=== PATIENT | female | born 1945 | race Caucasian/White ===

== ENCOUNTER → 2017-12-01 | Outpatient (CLI) | payer MEDICARE ==
[~2017-12-01] MED LIST: ASMANEX TW0.22 MG/A1 IH; PERCOCET 325 MG1 TA2 PO; PRO-AIR IH; RT ADVAIR 228 DISKUS IH; RT SPIRIVA18 MCG IH; VENTOLIN0.09 MG
== END ==
LOC: COL.VAS 11:48
DX: I34.0 Nonrheumatic mitral (valve) insufficiency (principal); I51.7 Cardiomegaly; J90 Pleural effusion, not elsewhere classified; I31.3 Pericardial effusion (noninflammatory)

== ENCOUNTER 2018-02-17 09:30 | Outpatient (RCR) | payer MEDICARE | END 2018-03-05 | disposition home or self-care (01) | LOC: MKS.ESL.PT | DX: I89.0 Lymphedema, not elsewhere classified (principal) | CPT/HCPCS: G8990-GP; G8991-GP ==

== ENCOUNTER → 2018-06-23 | Outpatient (CLI) | payer MEDICARE | LOC: COL.RAD 10:30 | DX: K80.20 Calculus of gallbladder without cholecystitis without obstruction (principal); J18.9 Pneumonia, unspecified organism; R91.8 Other nonspecific abnormal finding of lung field ==

== ENCOUNTER → 2018-07-14 | Outpatient (CLI) | payer MEDICARE | LOC: COL.RAD 12:38 | DX: K80.20 Calculus of gallbladder without cholecystitis without obstruction (principal) ==

== ENCOUNTER 2018-09-14 10:34 | Day surgery (SDC) | payer MEDICARE ==
[~2018-09-14] VITALS: Ht 167.6 cm; Wt 106.4 kg
[2018-09-14] MEDS ORDERED: SYNTHROID0.088 MG/T PO (11:02)
[2018-09-14] MEDS ORDERED: REFRESH TEARS 330 ML OP (11:04)
[2018-09-14] MEDS ORDERED: ZYRTEC 10MG10 MG PO (11:06)
[2018-09-14 11:23] VITALS: BP 140/75; PULSE 55; TEMP 97.9
[2018-09-14] MEDS ORDERED: PERCOCET 325 MG1 TA2 PO (15:25)
[2018-09-14] MEDS ORDERED: MOTRIN 600600 MG/TAB PO (15:26)
[2018-09-14] MEDS ORDERED: COLACE 100100 MG/CAP PO (15:26)
[2018-09-14 15:55] VITALS: BP 132/66; PULSE 78; TEMP 98.2
--- NOTE | 2018-09-14 15:55 | NUR ---
PATIENT RETURNS FROM OR VIA CART TO BAY 6. VS STARTED. DENIES PAIN OR NAUSEA AT THIS TIME. REQUESTS WATER AND VANILLA PUDDING. ALERT AND ORIENTED X 4. FAMILY IS AT BEDSIDE. CALL LIGHT IS WITHIN REACH. WILL CONTINUE TO MONITOR.
[2018-09-14 16:10] VITALS: BP 136/68; PULSE 72
[2018-09-14 16:25] VITALS: BP 114/65; PULSE 68
--- NOTE | 2018-09-14 16:38 | NUR ---
TOLERATED WATER AND PUDDING, DENIES NAUSEA. DENIES PAIN. DENIES OTHER NEEDS AT THIS TIME. CALL LIGHT IS WITHIN REACH. FAMILY IS AT BEDSIDE. WILL CONTINUE TO MONITOR.
[2018-09-14 16:40] VITALS: BP 136/78; PULSE 72; TEMP 97.6
--- NOTE | 2018-09-14 16:40 | NUR ---
PATIENT REQUESTS MORE WATER. DENIES PAIN OR NAUSEA. IV DC'D. CALL LIGHT IN REACH.
[2018-09-14 16:43] VITALS: BP 132/66; PULSE 73; TEMP 97.9
--- NOTE | 2018-09-14 17:00 | NUR ---
PATIENT AMBULATED TO THE RESTROOM WITH STEADY GAIT, UNASSISTED. REPORTED URINATING WITHOUT DIFFICULTY. DISCHARGE INSTRUCTIONS GIVEN TO PATIENT AND FAMILY.
--- NOTE | 2018-09-14 17:19 | NUR ---
PATIENT DECLINED WHEELCHAIR ASSISTANCE TO PERSONAL VEHICHLE, AMBULATED WITH STEADY GAIT ESCORTED BY THIS NURSE AND FAMILY.
== END 2018-09-14 17:10 | disposition home or self-care (01) ==
LOC: SDCO 10:34
DX: K80.10 Calculus of gallbladder with chronic cholecystitis without obstruction (principal); J44.9 Chronic obstructive pulmonary disease, unspecified; E03.9 Hypothyroidism, unspecified; D64.9 Anemia, unspecified; Z85.828 Personal history of other malignant neoplasm of skin; Z80.1 Family history of malignant neoplasm of trachea, bronchus and lung; Z88.0 Allergy status to penicillin; Z90.710 Acquired absence of both cervix and uterus
CPT/HCPCS: J0690; J1100; J2405; J2704; J3010; J7120; Q9967

== ENCOUNTER → 2021-01-16 | Outpatient (CLI) | payer MEDICARE ==
[~2021-01-16] MED LIST changes: +ALEVE 220MG220 MG PO; +COLACE 100100 MG/CAP PO; +MASON NATURAL1200 MG PO; +MOTRIN 600600 MG/TAB PO; +MULTIPLE VITAMI1 TA5 PO; +NORCO 325 MG-51 TAB PO; +PHARMASSURE ZIN50 MG PO; +REFRESH TEARS 330 ML OP; +RT ALBUTER2.5 MG/0.5 IH; +SINGULAIR 110 MG/TAB PO; +SYNTHROID0.088 MG/T PO; +THEO-24 30300 MG/CAP PO; +VITAMIN C500 MG PO; +VITAMIN D 400400 IU PO; +ZYRTEC 10MG10 MG PO
== END ==
LOC: MC.RAD 11:03
DX: N63.20 Unspecified lump in the left breast, unspecified quadrant (principal)
CPT/HCPCS: 30634

== ENCOUNTER → 2021-02-25 | Outpatient (CLI) | payer MEDICARE | LOC: MC.RAD 12:23 | DX: C50.912 Malignant neoplasm of unspecified site of left female breast (principal); Z17.0 Estrogen receptor positive status [ER+] | CPT/HCPCS: A9541; C1769 ==

== ENCOUNTER 2021-02-26 09:09 | Day surgery (SDC) | payer MEDICARE ==
[~2021-02-26] VITALS: Ht 167.6 cm; Wt 103.8 kg
[~2021-02-26 09:09] MED LIST changes: -ALEVE 220MG220 MG PO; -MASON NATURAL1200 MG PO; -MULTIPLE VITAMI1 TA5 PO; -NORCO 325 MG-51 TAB PO; -PHARMASSURE ZIN50 MG PO; -RT ALBUTER2.5 MG/0.5 IH; -SINGULAIR 110 MG/TAB PO; -THEO-24 30300 MG/CAP PO; -VITAMIN C500 MG PO; -VITAMIN D 400400 IU PO
[2021-02-26 10:11] VITALS: BP 182/87; PULSE 74; TEMP 97.9
[2021-02-26] MEDS ORDERED: SINGULAIR 110 MG/TAB PO (12:07)
[2021-02-26] MEDS ORDERED: RT ALBUTER2.5 MG/0.5 IH (12:09)
[2021-02-26] MEDS ORDERED: ALEVE 220MG220 MG PO (12:10)
[2021-02-26] MEDS ORDERED: THEO-24 30300 MG/CAP PO (12:11)
[2021-02-26] MEDS ORDERED: MULTIPLE VITAMI1 TA5 PO (12:13)
[2021-02-26] MEDS ORDERED: MASON NATURAL1200 MG PO (12:14)
[2021-02-26] MEDS ORDERED: VITAMIN D 400400 IU PO (12:14)
[2021-02-26] MEDS ORDERED: VITAMIN C500 MG PO (12:15)
[2021-02-26] MEDS ORDERED: PHARMASSURE ZIN50 MG PO (12:15)
[2021-02-26 15:13] VITALS: TEMP 98.8
[2021-02-26] MEDS ORDERED: NORCO 325 MG-51 TAB PO (15:24)
[2021-02-26] MEDS ORDERED: MOTRIN 600600 MG/TAB PO (15:24)
[2021-02-26 15:25] VITALS: BP 140/68; PULSE 76
--- NOTE | 2021-02-26 15:25 | NUR ---
Patient returns to room 1 per cart from PACU accompanied by Isela SMITH and is awake and alert. Temp 98.2 and room air sats 94%. Exofin skin glue covering the incisions x2 on the left breast dry and intact. Taking ice chips. Denies pain or nausea. IV to INT and assisted up to the bathroom with one person assist. Able to void and returns to room. Tolerated activity well.
[2021-02-26 15:40] VITALS: BP 156/81; PULSE 80
--- NOTE | 2021-02-26 15:40 | NUR ---
Taking ice chips and denies pain or nausea.
[2021-02-26 15:55] VITALS: BP 140/68; PULSE 66
--- NOTE | 2021-02-26 15:55 | NUR ---
Eating applesauce, toast, and drinking water and coffee.
[2021-02-26 16:10] VITALS: BP 122/53; PULSE 88
--- NOTE | 2021-02-26 16:10 | NUR ---
Tolerated snack. Continues to dey pain or nausea. States she is feeling well enough to go home.
--- NOTE | 2021-02-26 16:15 | NUR ---
IV discontinued and site is free of redness or swelling. Assisted with dressing. Dismissal instructions given and voices understanding of these. Provided follow up appointment date and time.
--- NOTE | 2021-02-26 16:25 | NUR ---
Patient dismissed to home driven by daughter and assisted with into vehicle with dismissal instructions in hand. Taken to vehicle per wheelchair.
== END 2021-02-26 16:25 | disposition home or self-care (01) ==
LOC: SDCO 09:09
DX: C50.412 Malignant neoplasm of upper-outer quadrant of left female breast (principal); I10 Essential (primary) hypertension; I25.2 Old myocardial infarction; J44.9 Chronic obstructive pulmonary disease, unspecified; E03.9 Hypothyroidism, unspecified; Z79.890 Hormone replacement therapy; Z79.899 Other long term (current) drug therapy; Z90.710 Acquired absence of both cervix and uterus; Z90.49 Acquired absence of other specified parts of digestive tract; Z80.1 Family history of malignant neoplasm of trachea, bronchus and lung
CPT/HCPCS: A4648; J0690; J1100; J1885; J2250; J2405; J2704; J2795; J7120; Q9968

== ENCOUNTER 2023-01-10 06:48 | Day surgery (SDC) | payer MEDICARE ==
[~2023-01-10] VITALS: Ht 167.6 cm; Wt 110.2 kg
[2023-01-10] VITALS (15 sets, daily range): BP systolic 92–146; BP diastolic 46–96; PULSE 51–92; TEMP 97.5–99.3
[~2023-01-10 06:48] MED LIST changes: +ALEVE 220MG220 MG PO; +MASON NATURAL1200 MG PO; +MULTIPLE VITAMI1 TA5 PO; +NORCO 325 MG-51 TAB PO; +PHARMASSURE ZIN50 MG PO; +RT ALBUTER2.5 MG/0.5 IH; +SINGULAIR 110 MG/TAB PO; +THEO-24 30300 MG/CAP PO; +VITAMIN C500 MG PO; +VITAMIN D 400400 IU PO
[2023-01-10] MEDS ORDERED: ANORO IH (07:20)
[2023-01-10] MEDS ORDERED: SYNTHROID0.1 MG/TAB PO (07:22)
[2023-01-10] MEDS ORDERED: HYZAAR 25 MG-101 TAB (07:22)
[2023-01-10] MEDS ORDERED: PLAVIX 75MG TAB75 MG PO (07:38)
[2023-01-10] MEDS ORDERED: ASPIRIN E.C. 8181 MG PO (07:39)
[2023-01-10] MEDS ORDERED: IPRATROPIUM BROM3 M1 IH (07:41)
[2023-01-10] MEDS ORDERED: REFRESH TEARS 330 ML OP (07:43)
--- NOTE | 2023-01-10 09:44 | NUR ---
0700 PT AMBULATORY TO BAY 2 WITH A STEADY GAIT, BREATHING EVEN AND UNLABORED. PT IS ALERT AND ORIENTED. CONSENT REVIEWED AND SIGNED BY PT. IV ESTABLISHED. LR INFUSING VIA DIAL A FLOW. KNEE HIGH VIOLET STOCKING PLACED ON RIGHT LEG. CALL LIGHT IN REACH. WARM BLANKET PROVIDED. FAMILY AT BEDSIDE.
--- NOTE | 2023-01-10 15:25 | NUR ---
PT ARRIVED TO FLOOR FROM PACU AT 1300. VITALS STABLE, LUNGS CLEAR, PT IS HAVING SOME PACS. SCD'S ON. DRESSING IS CLEAN, DRY, INTACT. PULSES ARE PLUS TWO AND PT HAS FULL FEELING BACK IN LEGS AND IS ABLE TO MOVE THEM FREELY. NO COMPLAINTS OF PAIN RIGHT NOW.
--- NOTE | 2023-01-10 19:53 | NUR ---
DC'D NS IV, PER PROVIDER INSTRUCTIONS. PATIENT TOLERATING LIQUIDS.
--- NOTE | 2023-01-10 22:25 | NUR ---
UPON SHIFT ASSESSMENT, HILLARY ZAYAS WAS CHEERFUL AND HAD TWO VISITORS BEDSIDE. SHE DENIED ANY PAIN STATING, "I THINK THE NERVE BLOCK THEY GAVE ME IS STILL WORKING." HER INCISION SITE LOOKED WELL APPROXIMATED WITH NO REDNESS, DRAINAGE OR SWELLING NOTED. SHE IS TOLERATING LIQUIDS AND WAS DC'D FROM IV FLUIDS. LUNG SOUNDS WERE CLEAR AND SHE DENIED SOA. SHE ADMITTED TO URINATING EARLIER DURING PT SESSION. CALL LIGHT WITHIN REACH.
--- NOTE | 2023-01-10 22:56 | NUR ---
HEMAVAC ASSESSED; CONTAINED VERY LITTLE DRAINAGE.
[2023-01-11] VITALS (10 sets, daily range): BP systolic 90–134; BP diastolic 38–68; PULSE 78–87; TEMP 97.1–98.6
--- NOTE | 2023-01-11 06:56 | NUR ---
TOWARDS THE END OF SHIFT, HILLARY ZAYAS WAS IN HER CHAIR AWAITING BREAKFAST. HER VSS ARE CURRENTLY WNL, HOWEVER, HER BP ARE LOW AND IT WAS RECOMMENDED TO DAYSHIFT TO CHECK HER BP MANUALLY BEFORE ADMINISTERING BP MEDS. SHE IS VERY CHEERFUL, A&O X 4, AND SURGICAL SITE IS FREE OF DRAINAGE (HEMAVAC), WITH MILD EDEMA AND REDNESS, NOTHING TO INDICATE COMPLICATIONS. HER SKIN AND PULSES DISTAL TO SURGICAL SITE ARE NORMAL. HER RT LEG STILL HAS + 2 EDEMA R/T LYMPHEDEMA. SHE DENIES PAIN BUT C/O SCRATCHY THROAT AND OCCASIONAL COUGH. SHE STATED, "I'VE ALWAYS HAD A LITTLE COUGH." CALL LIGHT WITHIN REACH.
[2023-01-11 07:22] LABS: HEMOGLOBIN 11.2 g/dl (12.5-16.0)
[2023-01-11 07:24] LABS: HEMATOCRIT 33.4 % (37.0-47.0)
[2023-01-11 07:58] LABS: CALCIUM 8.9 mg/dL (8.4-10.2); CREATININE, serum 1.84 mg/dL (0.57-1.11); POTASSIUM 3.7 mmol/L (3.5-4.5)
--- NOTE | 2023-01-11 10:00 | NUR ---
back up worker met with patient to discuss discharge planning. Patient confirmed she lives in [place] with her 17 year old grand-daughter. Patient confirmed she has two sons for contacts, Michael P#: [phone] and Christopher P#: [phone]. Patient confirmed her primary care physician is Dr. Mendoza and preferred pharmacy is [facility]. Patient denied any difficulty affording his medications. back up worker expressed the POA on patient's file is for business and property decisions. Patient expressed she has a separate one for [facility]- appointing Christopher and Estella as her agents. Patient expressed she has a cane that she utilizes when needed at home. Patient reports she is independent with ADLS. Patient has a great support system with family members. back up worker discussed OP PT that was recommended by therapy evaluations. Patient expressed she would like to have OP PT at the [facility] as it is close to her house. Patient expressed orders should have been sent over but she was uncertain if an appointment was set. back up worker expressed she would contact the hospital to check if it has been scheduled. Patient expressed she would like to return home at time of discharge. back up worker contacted [facility] regarding patient's OP PT. The physical therapy department had not received orders yet but they would request from Dr. Chambers. back up worker scheduled patient's first OP PT appointment for 01/13/23 at 3 pm. back up worker notified patient and community case managerMarcio, of the appointment. Discharge Plan: Home
--- NOTE | 2023-01-11 10:05 | NUR ---
PT LATING IN BED, ALERT AND ORIENTEDX4. RATES PAIN 4/10 IN THE LEFT KNEE. PULSES ARE STRONG. PT IS ABLE TO MOVE LEG AND HAS COMPLETE FEELING BACK. PT HAS BEEN VOIDING WELL AND GOT UP TO CHAIR WITH THERAPY.
--- NOTE | 2023-01-11 11:43 | NUR ---
Initial visit: Automobile Body Repair Supervisor stopped by room on rounds. Pt was resting and content. Pt asked for prayer for herself and also her son. Automobile Body Repair Supervisor prayed for both of them. Pt appreciated the visit. Automobile Body Repair Supervisor will follow up as needed.
[2023-01-11] MEDS ORDERED: CEPHALEXIN500 M1 PO (14:00)
[2023-01-11] MEDS ORDERED: PERCOCET 325 MG1 TA2 PO (14:00)
--- NOTE | 2023-01-11 16:03 | NUR ---
Mica Laminating Machine Feeder notified that patient will need a FWW to go home with. VICENTE contacted Alejandrina at [facility] and faxed referral and order for FWW. Alejandrina is processing the order and will have it delivered this afternoon. VICENTE met with patient and explained that walker will be ordered and delivered to her room prior to discharge. VICENTE also updated RN.
--- NOTE | 2023-01-11 17:37 | NUR ---
PT HAS DISCHARGE ORDERS. TOOK OUT PT IV. WENT OVER DISCHARGE PAPERWORK WITH PT. PCT ESCORTED PT OUT TO CAR.
== END 2023-01-11 16:50 | disposition home or self-care (01) ==
LOC: SDCO 06:48 → SURG 06:48 → SDCO 09:30 → SURG 13:00 → SDCO 01-11 16:50
PROVIDERS: Internal Medicine; Physician Assistant
DX: M17.12 Unilateral primary osteoarthritis, left knee (principal); E03.9 Hypothyroidism, unspecified; J44.9 Chronic obstructive pulmonary disease, unspecified; I10 Essential (primary) hypertension; R94.4 Abnormal results of kidney function studies; Z95.820 Peripheral vascular angioplasty status with implants and grafts; Z79.890 Hormone replacement therapy; Z87.2 Personal history of diseases of the skin and subcutaneous tissue; Z85.3 Personal history of malignant neoplasm of breast; Z79.02 Long term (current) use of antithrombotics/antiplatelets; Z79.899 Other long term (current) drug therapy
CPT/HCPCS: OP; A9284; C1713; C1776; J0690; J1100; J1200; J1580; J1885; J2250; J2270; J2704; J2795; J7030; J7120

== ENCOUNTER 2023-05-09 10:32 | Inpatient (IN) | payer MEDICARE ==
[2023-05-09] VITALS (18 sets, daily range): BP systolic 99–149; BP diastolic 47–79; PULSE 86–133; TEMP 97.1–98
[~2023-05-09] VITALS: Ht 166.4 cm; Wt 102.6 kg
[~2023-05-09 10:32] MED LIST changes: +ANORO IH; +ASPIRIN E.C. 8181 MG PO; +CEPHALEXIN500 M1 PO; +HYZAAR 25 MG-101 TAB PO; +IPRATROPIUM BROM3 M1 IH; +LR 1,000 ML IV SCH; +PLAVIX 75MG TAB75 MG PO; +SYNTHROID0.1 MG/TAB PO
[2023-05-09] MEDS ORDERED: ARIMIDEX1 MG PO (11:55)
[2023-05-09] MEDS ORDERED: ULTRAM 50MG TAB50 MG PO (12:03)
[2023-05-09] MEDS ORDERED: Ondansetron 4 MG/2 ML VIAL ONE (12:48)
[2023-05-09] MEDS ORDERED: Lidocaine PF 2% (20 MG/ML) 5 ML VIAL ONE (12:48)
[2023-05-09] MEDS ORDERED: Ondansetron 4 MG/2 ML VIAL IV PRN (13:00)
[2023-05-09] MEDS ORDERED: HYDROmorphone 2 MG/1 ML VIAL IV PRN (13:00)
[2023-05-09] MEDS ORDERED: Midazolam 2 MG/2 ML VIAL ONE (13:23)
[2023-05-09] MEDS ORDERED: fentaNYL 50 MCG/ML 2 ML VIAL ONE (13:23)
[2023-05-09] MEDS ORDERED: Tranexamic Acid 1,000 MG/10 ML VIAL ONE (13:26)
[2023-05-09] MEDS ORDERED: NS 0 ML IV ONE (13:42)
[2023-05-09] MEDS ORDERED: *Potassium Replacement Protocol MC SCH (15:30)
--- NOTE | 2023-05-09 15:47 | NUR ---
PATIENT BROUGHT TO [facility] 6 D/T SURGERY CANCELLED, PATIENT'S FAMILY BROUGHT TO BEDSIDE. BEDSIDE REPORT OBTAINED FROM BHUMIKA. PLAN OF CARE REVIEWED. DIE CLEANER CALLED, PT TO TRANSFER TO ROOM 348. PT AND FAMILY AGREEABLE TO PLAN OF CARE. PATIENT GIVEN WATER. DENIES PAIN TO RIGHT KNEE, DENIES NUMBNESS OR HEAVINESS POST-NERVE BLOCK. HEART RATE NOTED 120'S. TRANSFER OF CARE REPORT GIVEN TO ALEX. PATIENT TRANSPORTED VIA CART AND TELEMETRY TO ROOM 348 AND POSITIONED SELF TO BED IN ROOM. ALL BELONGINGS SENT WITH PT. STAFF AT BEDSIDE FOLLOWING ARRIVAL. PT AWAITING CONSULT FROM HOSPITALIST AND SENIOR ORACLE ADF DEVELOPER.
[2023-05-09 16:10] LABS: BASO # 0.1 K/mm3 (0.0-0.2); EOS # 0.1 K/mm3 (0.0-0.7); EOS % 1.1 % (0.0-4.0); GRAN # 5.5 K/mm3 (1.4-6.5); GRAN % 78.3 % (42.2-75.2); HEMATOCRIT 37.1 % (37.0-47.0); LYMPH # 0.9 K/mm3 (1.2-3.4); LYMPH % 13.3 % (20.0-51.0); MEAN CELL VOLUME 87 fl (80.0-100.0); MEAN CORPUSCULAR HEMOGLOBIN 28 pg (27-31); MEAN CORPUSCULAR HGB CONC 32 g/dl (33.0-37.0); MEAN PLATELET VOLUME 11.9 fl (7.4-10.4); MONO # 0.4 K/mm3 (0.1-0.6); PLATELET COUNT 256 K/mm3 (130-400); RED BLOOD COUNT 4.26 M/mm3 (4.10-5.30); REDCELL DISTRIBUTION WIDTH-CV 14.5 % (11.5-14.5)
[2023-05-09 16:24] LABS: MAGNESIUM 1.9 mg/dL (1.6-2.6)
[2023-05-09 16:28] LABS: ALBUMIN 3.4 gm/dL (3.4-4.8); BILIRUBIN,TOTAL 0.9 mg/dL (0.2-1.2); CALCIUM 9.9 mg/dL (8.4-10.2); CREATININE, serum 1.43 mg/dL (0.57-1.11); POTASSIUM 4.5 mmol/L (3.5-4.5); TOTAL PROTEIN 6.5 gm/dL (6.2-8.1)
[2023-05-09 16:44] LABS: INR 1.1 (0.8-3.0); PROTHROMBIN TIME 11.6 SECONDS (9.7-12.8); TSH w REFLEX 0.951 uIU/mL (0.350-4.940)
[2023-05-09] MEDS ORDERED: NS 1,000 ML IV SCH (17:00)
--- NOTE | 2023-05-09 17:27 | NUR ---
Pt is very pleasent, minimal complaints of pain in her right knee. Pt reports just achy, but tolerable. Pt is steady on her feet and gets around independently. IVF infusing. Discussed plan of care with pt. Pt aware that she cannot have anything to eat or drink after midnight for cardioversion. She stated that she is going to reschedule her surgery for future time. Pt oriented to her room, no needs or questions. Call light within reach
[2023-05-09] MEDS ORDERED: Apixaban 5 MG TAB PO SCH (18:04)
[2023-05-09] MEDS ORDERED: dilTIAZem 25 MG/5 ML VIAL IV SCH (18:30)
[2023-05-09] MEDS ORDERED: dilTIAZem 25 MG/5 ML VIAL IV ONE (18:45)
--- NOTE | 2023-05-09 20:41 | NUR ---
Patient assessed around 1919. Given Cardizem bolus and started on Cardizem drip per orders. Stayed with patient for first 15 minutes. Tolerating Cardizem well so far. HR had been 130s, Afib RVR. Currently rate is 110s. Denies having pain and discomfort. Peripheral IV to right hand with IV fluids and Cardizem running per orders. Denies SOB and dyspnea. LS CTA. HRI. Telemetry in place. BSAx4. 1+ edema to RLE, reports that is chronic, lymphedema to RLE. Explained Cardizem drip and Eliquis to patient and family. All questions answered. Aware of plan for cardioversion in the morning. Voices no further questions, needs, or concerns at this time. In bed with call light within reach.
[2023-05-10] VITALS (26 sets, daily range): BP systolic 99–144; BP diastolic 44–85; PULSE 75–97; TEMP 97.3–979.9
--- NOTE | 2023-05-10 05:51 | NUR ---
Patient continues on Cardizem drip per orders. A-fib, rate controlled in the 80s at this time. Has been NPO since midnight for AZIZA/Cardioversion today. Voices no questions, needs, or concerns at this time. In bed with call light within reach.
[2023-05-10 07:36] LABS: BASO % 0.2 % (0.0-2.0); GRAN # 8.5 K/mm3 (1.4-6.5); HEMATOCRIT 35.9 % (37.0-47.0); HEMOGLOBIN 11.6 g/dl (12.5-16.0); LYMPH # 0.7 K/mm3 (1.2-3.4); LYMPH % 7.4 % (20.0-51.0); MEAN CELL VOLUME 88 fl (80.0-100.0); MEAN CORPUSCULAR HEMOGLOBIN 29 pg (27-31); MEAN CORPUSCULAR HGB CONC 32 g/dl (33.0-37.0); MEAN PLATELET VOLUME 11.8 fl (7.4-10.4); MONO # 0.3 K/mm3 (0.1-0.6); PLATELET COUNT 256 K/mm3 (130-400); RED BLOOD COUNT 4.07 M/mm3 (4.10-5.30); REDCELL DISTRIBUTION WIDTH-CV 14.3 % (11.5-14.5)
[2023-05-10 07:49] LABS: CALCIUM 9.3 mg/dL (8.4-10.2); CREATININE, serum 1.21 mg/dL (0.57-1.11); MAGNESIUM 1.7 mg/dL (1.6-2.6); PHOSPHOROUS 3.1 mg/dL (2.3-4.7); POTASSIUM 4.4 mmol/L (3.5-4.5)
[2023-05-10] MEDS ORDERED: Clopidogrel 75 MG TAB PO SCH (09:00)
--- NOTE | 2023-05-10 09:00 | NUR ---
Pt doing well, aware that she is NPO for upcoming procedure. Minimal to no complaints of pain. PT is getting up to the restroom independently
[2023-05-10] MEDS ORDERED: Magnesium Sulfate 1 GM/100 ML IV Soln IV SCH (09:45)
--- NOTE | 2023-05-10 11:08 | NUR ---
Family at bedside, no needs or questions
--- NOTE | 2023-05-10 12:30 | NUR ---
Pt off the floor with quality control lab tech
[2023-05-10] MEDS ORDERED: LR 1,000 ML IV SCH (13:00)
[2023-05-10] MEDS ORDERED: Amiodarone 200 MG TAB PO SCH (13:20)
--- NOTE | 2023-05-10 14:06 | NUR ---
Pt recently arrived back from having cardioversion. Pt doing well, no complaints. Educated her on ordering meals. Pts daughter is in the room with her.
--- NOTE | 2023-05-10 14:11 | NUR ---
Notified MARAH Velez about pts home medications have not been restarted
[2023-05-10] MEDS ORDERED: Carboxymethylcellulose PF Ophth 0.4 ML DROPPERETTE OP PRN (14:15)
--- NOTE | 2023-05-10 16:26 | NUR ---
Broadcast Meteorologist met with patient's daughter, Estella in patient's room while patient was in the OR for surgery. Patient lives in [place] with her eighteen year old granddaughter, Moraima. Estella believes patient sees Dr. Robles for primary care. Patient is normally independent with ADLS and is able to drive. Patient has a walker available at home for recovery. Estella believes that patient is set up with [facility] for outpatient PT. Discharge Plan: Home
--- NOTE | 2023-05-10 16:57 | NUR ---
PT continues to do well. Independent in the room, no needs or complaints
[2023-05-10] MEDS ORDERED: Albuterol/Ipratropium 3 MG-0.5 MG/3 ML Neb Soln IH SCH (19:00)
[2023-05-10] MEDS ORDERED: Montelukast 10 MG TAB PO SCH (21:00)
--- NOTE | 2023-05-10 21:00 | NUR ---
PT INDEPENDENT IN ROOM. IS ALERT AND ORIENTED X4. HAS INT TO RT HAND, FLUSHES WELL. HS MEDS GIVEN. DENIES PAIN AT THIS TIME. RLE WITH LYMPHEDEMA.
[2023-05-11 00:48] VITALS: BP_SYST 122
[2023-05-11 03:12] VITALS: BP 143/81; PULSE 82; TEMP 97.6
[2023-05-11 04:35] VITALS: BP_SYST 143
--- NOTE | 2023-05-11 06:00 | NUR ---
SCHEDULED AM MED GIVEN. PT WITHOUT CONCERNS AT THIS TIME. TELEMETRY SR.
[2023-05-11 06:32] LABS: BASO % 0.4 % (0.0-2.0); EOS # 0.1 K/mm3 (0.0-0.7); EOS % 0.5 % (0.0-4.0); GRAN # 8.6 K/mm3 (1.4-6.5); GRAN % 78.6 % (42.2-75.2); HEMOGLOBIN 10.8 g/dl (12.5-16.0); LYMPH # 1.5 K/mm3 (1.2-3.4); LYMPH % 13.4 % (20.0-51.0); MEAN CELL VOLUME 88 fl (80.0-100.0); MEAN CORPUSCULAR HEMOGLOBIN 28 pg (27-31); MEAN CORPUSCULAR HGB CONC 32 g/dl (33.0-37.0); MEAN PLATELET VOLUME 12.2 fl (7.4-10.4); MONO # 0.8 K/mm3 (0.1-0.6); MONO % 6.8 % (1.7-9.3); PLATELET COUNT 236 K/mm3 (130-400); RED BLOOD COUNT 3.89 M/mm3 (4.10-5.30); REDCELL DISTRIBUTION WIDTH-CV 14.8 % (11.5-14.5)
[2023-05-11 06:37] LABS: HEMATOCRIT 34.2 % (37.0-47.0)
[2023-05-11 06:53] LABS: ALBUMIN 3.1 gm/dL (3.4-4.8); CALCIUM 9.4 mg/dL (8.4-10.2); CREATININE, serum 1.26 mg/dL (0.57-1.11); PHOSPHOROUS 3.4 mg/dL (2.3-4.7); POTASSIUM 4.2 mmol/L (3.5-4.5)
[2023-05-11 07:27] VITALS: BP 149/84; PULSE 97; TEMP 97.5
[2023-05-11] MEDS ORDERED: ELIQUIS 5MG PO (08:23)
[2023-05-11] MEDS ORDERED: PACERONE200 MG PO (08:29)
[2023-05-11] MEDS ORDERED: COZAAR100 MG PO (08:30)
--- NOTE | 2023-05-11 08:57 | NUR ---
PT UP INDEPENDENTLY IN ROOM AND PANDYA. DR. SCHNEIDER IN TO SEE PT. DISCHARGE INSTRUCTIONS/ORDERS RECIEVED. PT TO FOLLOW UP OUT PT WITH CARDIOLOGY AND ORTHO.
[2023-05-11 09:00] VITALS: BP_SYST 149
[2023-05-11] MEDS ORDERED: Anastrozole 1 MG TAB PO SCH (09:00)
[2023-05-11] MEDS ORDERED: Theophylline ER (24-HR) 300 MG TAB-CAP PO SCH (09:00)
[2023-05-11 11:05] VITALS: BP 127/73; PULSE 83; TEMP 97.6
--- NOTE | 2023-05-11 13:02 | NUR ---
DISCHARGE INSTRUCTIONS REVIEWED WITH PT AND FAMILY, QUESTIONS SOLICITED AND ANSWERED. PT LEFT UNIT PER WHEEL CHAIR.
[2023-05-17] MEDS ORDERED: Amiodarone 200 MG TAB PO SCH (21:00)
[2023-05-25] MEDS ORDERED: Amiodarone 200 MG TAB PO SCH (09:00)
== END 2023-05-11 14:09 | disposition home or self-care (01) | DRG 310 ==
LOC: SDCO 10:32 → SURG 15:05 → SDCO 15:45 → SURG 21:00 → SDCO 05-11 07:30 → SURG 05-11 12:50
PROVIDERS: Nurse Practitioner Family; ADMIT Internal Medicine
PROC: 5A2204Z Restoration of Cardiac Rhythm, Single (ICD-10-PCS; principal; 2023-05-10)
DX: I48.91 Unspecified atrial fibrillation (principal); I12.9 Hypertensive chronic kidney disease with stage 1 through stage 4 chronic kidney disease, or unspecified chronic kidney disease; N18.9 Chronic kidney disease, unspecified; J44.9 Chronic obstructive pulmonary disease, unspecified; E03.9 Hypothyroidism, unspecified; Z96.652 Presence of left artificial knee joint; Z85.3 Personal history of malignant neoplasm of breast; Z85.828 Personal history of other malignant neoplasm of skin; Z79.890 Hormone replacement therapy; Z79.899 Other long term (current) drug therapy; Z87.891 Personal history of nicotine dependence; I89.0 Lymphedema, not elsewhere classified; Z79.811 Long term (current) use of aromatase inhibitors; M25.561 Pain in right knee
CPT/HCPCS: J0665; J0690; J2250; J2405; J2704; J2795; J3010; J3475; J7030; J7120

== ENCOUNTER 2024-01-27 05:13 | Inpatient (IN) | payer MEDICARE ==
[2024-01-27] VITALS (14 sets, daily range): BP systolic 111–151; BP diastolic 47–89; PULSE 60–88; TEMP 96.7–98.4
[~2024-01-27] VITALS: Ht 167.6 cm; Wt 110.7 kg
[~2024-01-27 05:13] MED LIST changes: +ARIMIDEX1 MG PO; +COZAAR100 MG PO; +ELIQUIS 5MG PO; -LR 1,000 ML IV SCH; +PACERONE200 MG PO; +ULTRAM 50MG TAB50 MG PO; -VENTOLIN0.09 MG; +VENTOLIN0.09 MG PO
[2024-01-27] MEDS ORDERED: SYNTHROID0.112 MG/T PO (06:25)
[2024-01-27] MEDS ORDERED: THEO-24400 MG PO (06:28)
[2024-01-27] MEDS ORDERED: TYLENOL 500MG500 MG PO (06:31)
[2024-01-27] MEDS ORDERED: fentaNYL 50 MCG/ML 2 ML VIAL ONE (07:04)
[2024-01-27] MEDS ORDERED: Lidocaine PF 2% (20 MG/ML) 5 ML VIAL ONE (07:06)
[2024-01-27] MEDS ORDERED: dexAMETHasone 10 MG/ML VIAL ONE (07:07)
[2024-01-27] MEDS ORDERED: NS 10 ML IV ONE (07:07)
[2024-01-27] MEDS ORDERED: Ondansetron 4 MG/2 ML VIAL IV PRN ×2 (07:30→08:15)
[2024-01-27] MEDS ORDERED: Acetaminophen 500 MG TAB PO SCH (07:30)
[2024-01-27] MEDS ORDERED: Naloxone 0.4 MG/ML VIAL IV PRN (07:30)
[2024-01-27] MEDS ORDERED: Ketorolac 15 MG/ML VIAL IV SCH (07:30)
[2024-01-27] MEDS ORDERED: oxyCODONE 5 MG TAB PO PRN (07:30)
[2024-01-27] MEDS ORDERED: Bisacodyl 5 MG TAB PO PRN (07:30)
[2024-01-27] MEDS ORDERED: NS 1,000 ML IV SCH (07:30)
[2024-01-27] MEDS ORDERED: Acetaminophen 500 MG TAB PO PRN (07:30)
[2024-01-27] MEDS ORDERED: Tranexamic Acid 1,000 MG/10 ML VIAL ONE (07:30)
[2024-01-27] MEDS ORDERED: Mag/Al Hydrox/Simeth Susp 30 ML CUP PO PRN (07:30)
[2024-01-27] MEDS ORDERED: Magnes Hydrox (MOM) 80 MG/ML 30 ML CUP PO PRN (07:30)
[2024-01-27] MEDS ORDERED: Morphine 4 MG/ML VIAL IV PRN (07:30)
[2024-01-27] MEDS ORDERED: LR 1,000 ML IV SCH (08:00)
[2024-01-27] MEDS ORDERED: HYDROmorphone 1 MG/1 ML SYRINGE [PACU/SDC ONLY] IV PRN (08:15)
[2024-01-27] MEDS ORDERED: Morphine 2 MG/1 ML VIAL [PACU/SDC ONLY] IV PRN ×2 (08:15)
[2024-01-27] MEDS ORDERED: ePHEDrine 50 MG/ML VIAL ONE (08:24)
[2024-01-27] MEDS ORDERED: Thrombin Human (Recombinant) 5,000 UNITS VIAL TP ONE (08:25)
[2024-01-27] MEDS ORDERED: Ketorolac 30 MG/ML VIAL IM ONE (08:25)
[2024-01-27] MEDS ORDERED: Morphine 4 MG/ML VIAL IM ONE (08:25)
[2024-01-27] MEDS ORDERED: Magnes Hydrox (MOM) 80 MG/ML 30 ML CUP PO SCH (09:00)
[2024-01-27] MEDS ORDERED: Sennosides/Docusate 8.6-50 MG TAB PO SCH (09:00)
[2024-01-27] MEDS ORDERED: Apixaban 2.5 MG TABLET PO SCH (09:00)
[2024-01-27] MEDS ORDERED: Ascorbic Acid 500 MG TAB PO SCH (09:00)
--- NOTE | 2024-01-27 12:07 | NUR ---
PATIENT ARRIVED TO FLOOR AT 1130AM FROM PACU AFTER RT TOTAL KNEE REPLACMENT. PATIENT STATES CAN MOVE TOES AND FOOT BUT STILL UNABLE TO MOVE ANYTHING ABOVE THAT ON RT LOWER EXTRIMITY. PATIENT STATES NO PAIN AT THIS TIME. VSS. SON IS AT BEDSIDE AND LUNCH HAS BEEN ORDERED. CALL LIGHT IN REACH
[2024-01-27 12:54] LABS: ALBUMIN 3.6 g/dL (3.4-4.8); BILIRUBIN,TOTAL 0.3 mg/dL (0.2-1.2); CALCIUM 9.6 mg/dL (8.4-10.2); CREATININE, serum 1.43 mg/dL (0.57-1.11); POTASSIUM 4.8 mEq/L (3.5-4.5); TOTAL PROTEIN 6.7 g/dl (6.2-8.1)
--- NOTE | 2024-01-27 15:14 | NUR ---
SW met with patient to complete initial assessment for discharge planning. Patient verified that she lives at home in [place] with her 18 year old granddaughter living with. Patient sees Dr. Clarice Robles as her PCP and she uses [facility] pharmacy without difficulty. Patient has a cane, FWW, shower chair and grab bars at home. Teresa lists her sons Michael ([phone]), John Paul ([phone]) and Chas ([phone]) as her emergency contacts and has her son John Paul and daughter Estella named as DPOA for healthcare. Patient plans to go to her son John Paul's home for a few days at discharge and wants to go to [facility] OP rehab as she has in the past. Referral faxed to [facility] OP rehab department. Discharge plan: Home with family and OP therapy
[2024-01-27] MEDS ORDERED: ceFAZolin 2 G in Water For Injection,Sterile 20 ML IV SCH (15:15)
[2024-01-27] MEDS ORDERED: Cetirizine 10 MG TAB PO PRN (16:45)
[2024-01-27] MEDS ORDERED: Albuterol/Ipratropium 3 MG-0.5 MG/3 ML Neb Soln IH SCH (19:00)
[2024-01-27] MEDS ORDERED: Carboxymethylcellulose PF Ophth 0.4 ML DROPPERETTE OP SCH (21:00)
[2024-01-27] MEDS ORDERED: Montelukast 10 MG TAB PO SCH (21:00)
[2024-01-28 03:21] VITALS: BP 115/71; PULSE 86; TEMP 98
[2024-01-28 04:34] VITALS: BP_SYST 115
--- NOTE | 2024-01-28 06:46 | NUR ---
PAIN CONTROLLED WITH SCHEDULED TYLENOL/TORADOL AND PRN OXYCODONE, UP TO RESTROOM WITH SBA USING WALKER, DRESSING TO RT KNEE CDI, HEMOVAC WITH MINIMAL OUTPUT.
--- NOTE | 2024-01-28 07:30 | NUR ---
SHIFT ASSESSMNET COMPLETE. VSS. PATIENT UP TO RECLINER THIS AM FINISHING BREAKFAST AND AWAITING PT SESSION TO START. ALL MORNING MEDS GIVEN THIS AM ORDERED. PATIENT STATES PAIN 6/10, PAIN MEDS GIVEN ORDERED. PATIENT HAS VSITED WITH DR. HERNÁNDEZ THIS AM AND HAS RECEIVED DC ORDERS. PATIENT MAY DC AFTER PT THIS MORNING. PATIENT HAS NO OTHER REQUEST AT THIS TIME. CALL LIGHT IN REACH
[2024-01-28] MEDS ORDERED: CEPHALEXIN500 M1 PO (07:41)
[2024-01-28] MEDS ORDERED: ULTRAM 50MG TAB50 MG PO (07:42)
[2024-01-28] MEDS ORDERED: ROXICODONE 55 MG/TAB PO (07:43)
[2024-01-28 08:10] VITALS: BP 122/55; PULSE 88; TEMP 98.3
[2024-01-28 08:34] VITALS: BP_SYST 122
--- NOTE | 2024-01-28 08:52 | NUR ---
PATIENT UP WORKING WITH PT. WALKING WITH SBA W/O ANY WALKING DEVICES. WILL DISCHARGE PATIENT AFTER PATIENT SHOWERS PER HER REQUEST
[2024-01-28] MEDS ORDERED: THEOPHYLLINE 400 MG PO SCH (09:00)
[2024-01-28] MEDS ORDERED: Anastrozole 1 MG TAB PO SCH (09:00)
[2024-01-28] MEDS ORDERED: Losartan 50 MG TAB PO SCH (09:00)
--- NOTE | 2024-01-28 12:47 | NUR ---
Data: Patient declined spiritual care visit because she hoped to discharge today. Patient did accepte prayer. Assessment: None at this time. Plan of Care: Wirer offered prayer. Patient thanked Wirer. Patient as since discharged.
== END 2024-01-28 07:47 | disposition home or self-care (01) | DRG 470 ==
LOC: SDCO 05:13 → SURG 05:30 → SDCO 07:30 → SURG 11:30 → SDCO 14:15 → SURG 01-28 07:47 → SDCO 01-28 11:00
PROVIDERS: Nurse Anesthetist, Certified Registered; ADMIT Orthopaedic Surgery
PROC: 0SRC0J9 Replacement of Right Knee Joint with Synthetic Substitute, Cemented, Open Approach (ICD-10-PCS; principal; 2024-01-27 07:30)
DX: M17.11 Unilateral primary osteoarthritis, right knee (principal); I10 Essential (primary) hypertension; E03.9 Hypothyroidism, unspecified; J30.2 Other seasonal allergic rhinitis; E78.5 Hyperlipidemia, unspecified; J44.9 Chronic obstructive pulmonary disease, unspecified; Z85.3 Personal history of malignant neoplasm of breast; I48.91 Unspecified atrial fibrillation; Z90.12 Acquired absence of left breast and nipple; Z90.710 Acquired absence of both cervix and uterus; Z90.49 Acquired absence of other specified parts of digestive tract; Z87.891 Personal history of nicotine dependence; Z79.899 Other long term (current) drug therapy; Z79.82 Long term (current) use of aspirin; Z79.51 Long term (current) use of inhaled steroids; Z79.890 Hormone replacement therapy; Z96.652 Presence of left artificial knee joint; Z79.02 Long term (current) use of antithrombotics/antiplatelets
CPT/HCPCS: OP; A9284; C1713; C1763; C1776; J0665; J0665-JZ; J0688; J0690; J1100; J1885; J2270; J2704; J2795; J3010; J7120